=== PATIENT | female | born 1970 | race Caucasian/White ===

== ENCOUNTER → 2018-07-10 | Outpatient (CLI) | payer OTHER | END | disposition home or self-care (01) | LOC: CFH 08:16 | PROVIDERS: ATTEND Obstetrics & Gynecology | DX: Z12.31 Encounter for screening mammogram for malignant neoplasm of breast (principal) | CPT/HCPCS: 77067 ==

== ENCOUNTER 2018-10-27 08:18 | Outpatient (CLI) | payer OTHER | END 2018-10-27 23:59 | disposition home or self-care (01) | LOC: WOUND 08:18 | PROVIDERS: ATTEND Family Medicine | DX: L97.222 Non-pressure chronic ulcer of left calf with fat layer exposed (principal); I10 Essential (primary) hypertension; I89.0 Lymphedema, not elsewhere classified; G40.801 Other epilepsy, not intractable, with status epilepticus; Z85.3 Personal history of malignant neoplasm of breast | CPT/HCPCS: 97597; 99205; 99215 ==

== ENCOUNTER 2018-11-03 08:00 | Outpatient (CLI) | payer OTHER | END 2018-11-03 23:59 | disposition home or self-care (01) | LOC: WOUND 08:00 | PROVIDERS: ATTEND Internal Medicine | DX: L97.222 Non-pressure chronic ulcer of left calf with fat layer exposed (principal); I10 Essential (primary) hypertension; I89.0 Lymphedema, not elsewhere classified; G40.801 Other epilepsy, not intractable, with status epilepticus; Z85.3 Personal history of malignant neoplasm of breast | CPT/HCPCS: 97597 ==

== ENCOUNTER → 2018-11-10 | Outpatient (CLI) | payer OTHER | END | disposition home or self-care (01) | LOC: WOUND 11:00 | PROVIDERS: ATTEND Internal Medicine | DX: L97.222 Non-pressure chronic ulcer of left calf with fat layer exposed (principal); I10 Essential (primary) hypertension; G40.801 Other epilepsy, not intractable, with status epilepticus; I89.0 Lymphedema, not elsewhere classified | CPT/HCPCS: 97597 ==

== ENCOUNTER 2018-11-17 08:08 | Outpatient (CLI) | payer OTHER | END 2018-11-17 23:59 | disposition home or self-care (01) | LOC: WOUND 08:08 | PROVIDERS: ATTEND Internal Medicine | DX: L97.222 Non-pressure chronic ulcer of left calf with fat layer exposed (principal); G40.801 Other epilepsy, not intractable, with status epilepticus; I10 Essential (primary) hypertension; I89.0 Lymphedema, not elsewhere classified; Z85.3 Personal history of malignant neoplasm of breast | CPT/HCPCS: 97597 ==

== ENCOUNTER → 2018-11-24 | Outpatient (CLI) | payer OTHER | END | disposition home or self-care (01) | LOC: WOUND 08:05 | PROVIDERS: ATTEND Internal Medicine | DX: L97.228 Non-pressure chronic ulcer of left calf with other specified severity (principal); I10 Essential (primary) hypertension; G40.801 Other epilepsy, not intractable, with status epilepticus; I89.0 Lymphedema, not elsewhere classified; Z85.3 Personal history of malignant neoplasm of breast | CPT/HCPCS: 99213 ==